=== PATIENT | male | born 1945 | race Caucasian/White ===

== ENCOUNTER 2017-02-27 06:08 | Day surgery (SDC) | payer MEDICARE, BC, OTHER ==
[~2017-02-27] VITALS: Ht 185.4 cm; Wt 94.3 kg
[~2017-02-27 06:08] MED LIST: ADVAIR DISK1 INH; CALCIUM 600 +600 MG PO; CELECOXIB200 MG PO; COLCHICINE0.6 M2 PO; DILT-XR120 MG PO; DUONEB IN; FOLIC ACID1 MG PO; LIVALO2 MG PO; METOPROL TAR25 MG PO; ORENCIA125 MG/ML SC; PRADAXA150 M1 PO; PREDNISONE5 MG PO; PRESERVISION AREDS 2 PO; RHEUMATREX2.5 M1 PO; VENTOLIN HFA IN; WARFARIN1 MG PO
[2017-02-27 10:34] VITALS: BP 108/71
== END 2017-02-27 09:10 | disposition home or self-care (01) ==
LOC: ENDO 06:08
PROVIDERS: ATTEND Surgery
PROC: 3E0H8GC Introduction of Other Therapeutic Substance into Lower GI, Via Natural or Artificial Opening Endoscopic (ICD-10-PCS; principal; 2017-02-27)
DX: Z12.11 Encounter for screening for malignant neoplasm of colon (principal); K56.60 Unspecified intestinal obstruction; Q43.9 Congenital malformation of intestine, unspecified; I10 Essential (primary) hypertension; J45.909 Unspecified asthma, uncomplicated; K64.4 Residual hemorrhoidal skin tags; Z86.010 Personal history of colon polyps

== ENCOUNTER → 2019-02-04 | Outpatient (REF) | payer MEDICARE, BC, OTHER ==
[2019-02-04 13:50] LABS: ALBUMIN 4.2 g/dL (3.2-5.0); ALKALINE PHOSPHATASE 46 u/l (38-126); ANION GAP 14 (6-22 (CALC)); BILIRUBIN, TOTAL 0.6 mg/dL (0.0-1.4); BUN 17 mg/dL (8-23); BUN/CREATININE RATIO 18 (12-20 (CALC)); CARBON DIOXIDE 26 mmol/l (22-30); CHLORIDE 106 mmol/l (95-108); GFR > 60 ML/MIN (>=60 (CALC)); GFR FOR AFR.AMER. > 60 ML/MIN (>=60 (CALC)); POTASSIUM 4.4 mmol/l (3.5-5.1); SGOT/AST 30 u/l (19-48); SODIUM 141 mmol/l (137-146); TOTAL PROTEIN 7.2 g/dL (6.3-8.2)
[2019-02-04 19:11] LABS: HEMATOCRIT 42.6 % (39.0-50.0); HEMOGLOBIN 13.7 g/dl (14.0-18.0); IMMATURE GRANULOCYTES 0.7 % (0.0-5.0); MEAN CELL VOLUME 102.4 fL CALC (80.0-100.0); MEAN CORPUSCULAR HGB 32.9 pG CALC (26.0-32.0); MEAN CORPUSCULAR HGB CONC 32.2 g/L CALC (32.0-36.0); NEUT# 6.41 thou/uL (1.82-7.42); RED BLOOD COUNT 4.16 mill/uL (4.70-6.10); RED CELL DISTRI WIDTH 13.6 % (11.5-15.5)
== END | disposition home or self-care (01) ==
LOC: LAB 11:50
DX: M05.79 Rheumatoid arthritis with rheumatoid factor of multiple sites without organ or systems involvement (principal); Z79.899 Other long term (current) drug therapy; D72.820 Lymphocytosis (symptomatic)

== ENCOUNTER 2022-02-20 18:06 | Emergency (ER) | payer MEDICARE, BC, OTHER ==
[~2022-02-20] VITALS: Ht 185.4 cm; Wt 100.0 kg
[2022-02-20 18:10] VITALS: BP 133/67
== END 2022-02-20 19:16 | disposition home or self-care (01) ==
LOC: ED 18:06
DX: S81.812A Laceration without foreign body, left lower leg, initial encounter (principal); I10 Essential (primary) hypertension; I48.0 Paroxysmal atrial fibrillation; M10.9 Gout, unspecified; M06.9 Rheumatoid arthritis, unspecified; W22.09XA Striking against other stationary object, initial encounter; Y93.53 Activity, golf; Y92.39 Other specified sports and athletic area as the place of occurrence of the external cause; Z79.52 Long term (current) use of systemic steroids; Z79.01 Long term (current) use of anticoagulants

== ENCOUNTER 2022-02-24 06:03 | Inpatient (IN) | payer MEDICARE, BC, OTHER ==
[~2022-02-24] VITALS: Ht 182.9 cm; Wt 91.0 kg
[2022-02-24] VITALS (32 sets, daily range): BP systolic 88–217; BP diastolic 49–196
--- NOTE | 2022-02-24 06:24 | NUR ---
PT TO ROOM VIA WHEELCHAIR MD AT BEDSIDE AND UPDATED ON PT STATUS
[2022-02-24 06:25] LABS: IMMATURE GRANULOCYTES 0.7 % (0.0-5.0); MEAN CELL VOLUME 101.6 fL CALC (80.0-100.0); MEAN CORPUSCULAR HGB 32.3 pG CALC (26.0-32.0); MEAN CORPUSCULAR HGB CONC 31.8 g/dL CAL (32.0-36.0); NEUT# 8.44 thou/uL (1.82-7.42); RED BLOOD COUNT 4.33 mill/uL (4.70-6.10); RED CELL DISTRI WIDTH 14.2 % (11.5-15.5)
[2022-02-24] MEDS ORDERED: CARVEDILOL3.125 MG PO (06:38)
[2022-02-24] MEDS ORDERED: ELIQUIS5 MG PO (06:39)
[2022-02-24] MEDS ORDERED: LIVALO2 M1 PO (06:40)
[2022-02-24] MEDS ORDERED: XELJANZ XR11 MG PO (06:41)
[2022-02-24] MEDS ORDERED: PRESERVISION AREDS 2 PO (06:41)
[2022-02-24] MEDS ORDERED: SINGULAIR10 MG PO (06:42)
[2022-02-24] MEDS ORDERED: DHEA25 M1 PO (06:43)
[2022-02-24 06:44] LABS: ALBUMIN 4.5 g/dL (3.2-5.0); ALKALINE PHOSPHATASE 50 u/l (38-126); ANION GAP 12 (6-22 (CALC)); BILIRUBIN, TOTAL 0.6 mg/dL (0.0-1.4); BUN 17 mg/dL (8-23); BUN/CREATININE RATIO 18 (12-20 (CALC)); CARBON DIOXIDE 25 mmol/l (22-30); CHLORIDE 107 mmol/l (95-108); CREATININE 0.9 mg/dL (0.7-1.3); GFR > 60 ML/MIN (>=60 (CALC)); GFR FOR AFR.AMER. > 60 ML/MIN (>=60 (CALC)); POTASSIUM 4.3 mmol/l (3.5-5.1); SGOT/AST 31 u/l (19-48); SODIUM 140 mmol/l (137-146); TOTAL PROTEIN 8.3 g/dL (6.3-8.2)
[2022-02-24] MEDS ORDERED: IRON325 M1 PO (06:44)
[2022-02-24] MEDS ORDERED: VITAMIN C500 M1 PO (06:44)
[2022-02-24] MEDS ORDERED: B121000 MC1 (06:45)
[2022-02-24] MEDS ORDERED: TAMSULOSIN HCL0.4 MG PO (06:46)
[2022-02-24] MEDS ORDERED: FAMOTIDINE20 M1 PO (06:46)
[2022-02-24 06:52] LABS: D-DIMER 0.81 mg/L (0.19-0.60)
[2022-02-24 06:59] LABS: INTERNATIONAL NORMALIZED RATIO 1.1 RATIO (0.7-1.3); PROTHROMBIN TIME 11.1 SECONDS (9.0-12.5)
--- NOTE | 2022-02-24 07:07 | NUR ---
REPORT GIVEN TO MUSA WALKER AND MUSA MARTINEZ
--- NOTE | 2022-02-24 10:14 | NUR ---
PT TAKEN TO MED/SURG VIA STRETCHER WITH TELE MONITOR IN PLACE. PT IN STABLE CONDITION AT TIME OF ADMISSION.
--- NOTE | 2022-02-24 10:16 | NUR ---
PT ARRIVED TO [facility] ROOM 285 VIA STRECHER ACCOMPAINED BY ER NURSE. PT A/OX3. ASSESSMENT AND VITALS COMPLETED. RESPIRATIONS EVEN AND UNLABORED ON 3L NC, O2 96%. LUNG SOUNDS DIMINISHED. BOWEL SOUNDS ACTIVE, LBM 02/23/22. HEART RHYTHM IRREGULAR, AFIB PER TELE MONITORING.(BOX#4) #20G RAC FLUSHED, SITE PATENT. PEDAL PULSES WEAK. DRESSING NOTED TO LLE, PHOTOS OBTAINED. DRY DRESSING REAPPLIED, REMAINS CDI. PT DENIES OF ANY PAINS OR DISCOMFORTS AT THIS TIME. NKDA NOTED. ALLERGY BAND AND FALL RISK BAND APPLIED. PT ORIENTED TO ROOM AND CALL SYSTEM. ALL SAFTEY PRECAUTIONS ARE IN PLACE WITH CALL LIGHT IN REACH. AIR/CONTACT PRECAUTIONS.
--- NOTE | 2022-02-24 11:37 | NUR ---
UPDATED ON PT STATUS.
--- NOTE | 2022-02-24 12:26 | NUR ---
PT RESTING IN SEMI FOWLERS POSITION. RESPIRATIONS EVEN AND UNLABORED ON 3L NC, O2 97%. O2 DECREASED TO 2L NC, REMAINS AT 97. TELE MONITORING IN PLACE. #20G RAC INFUSING WITH IV ABX.SCHEDULED MEDICATIONS ADMINISTERED. PT DENIES OF ANY ADDITIONAL NEEDS. ALL SAFTEY PRECAUTIONS ARE IN PLACE WITH CALL LIGHT IN REACH
--- NOTE | 2022-02-24 15:53 | NUR ---
TELE MONITORING CALLED STATING HR IN 40'S-50'S. UPON ENTERING ROOM, PT RESTING IN SEMI FOWLERS POSITION. PT STATES HE FEELS WEAK BUT NO CHANGE.TELE MONITORING REMAINS IN PLACE.PT DENIES OF PAINS OR DISCOMFORTS AT THIS TIME. ALL SAFTEY PRECAUTIONS ARE IN PLACE WITH CALL LIGHT IN REACH.
--- NOTE | 2022-02-24 18:01 | NUR ---
ORDERS FROM DR JACINTO TO FRIDA REMDESIVIR AND TRANSFER TO ICU FOR LOW HR. OBTAINED BY BED 8.
--- NOTE | 2022-02-24 18:09 | NUR ---
REPORT GIVEN TO MUSA RICHARDSON
--- NOTE | 2022-02-24 18:30 | NUR ---
PT TRANSFERED TO ICU BED 8 IN STABLE CONDITION WITH ALL PERSONAL BELONGINGS
--- NOTE | 2022-02-24 18:30 | NUR ---
PATIENT IS IN HIS NEW ROOM, STABLE, CALL LIGHT WITHIN REACH, SAFETY MEASURES IN PLACE. WILL CONTINUE TO MONITOR PER HOSPITAL'S POLICY.
--- NOTE | 2022-02-24 20:15 | NUR ---
awake. denies distress. o2 cont per nc. manager statistics shows a fib hr 48. #20 rac saline lock. po fluids taken well. up to bsc for bm then back to bed. shirley well. fall & air/contact precautions cont.
[2022-02-25] VITALS (17 sets, daily range): BP systolic 94–118; BP diastolic 47–90
--- NOTE | 2022-02-25 00:01 | NUR ---
eyes closed. no distress. triage assistant shows a fib pvc hr 46.
--- NOTE | 2022-02-25 02:00 | NUR ---
resting quietly. resps even & unlabored. no distress.
--- NOTE | 2022-02-25 04:00 | NUR ---
cardiac monitor technician shows a fib pvc hr 39.
--- NOTE | 2022-02-25 04:58 | NUR ---
xray here. pcxr obtained.
--- NOTE | 2022-02-25 05:25 | NUR ---
lab here. blood drawn.
[2022-02-25 05:38] LABS: IMMATURE GRANULOCYTES 0.4 % (0.0-5.0); MEAN CELL VOLUME 99.2 fL CALC (80.0-100.0); MEAN CORPUSCULAR HGB 32.1 pG CALC (26.0-32.0); MEAN CORPUSCULAR HGB CONC 32.4 g/dL CAL (32.0-36.0); NEUT# 14.31 thou/uL (1.82-7.42); RED BLOOD COUNT 3.58 mill/uL (4.70-6.10)
[2022-02-25 05:39] LABS: HEMATOCRIT 35.5 % (39.0-50.0); HEMOGLOBIN 11.5 g/dl (14.0-18.0)
[2022-02-25 06:02] LABS: ALKALINE PHOSPHATASE 34 u/l (38-126); ANION GAP 11 (6-22 (CALC)); BILIRUBIN, TOTAL 0.8 mg/dL (0.0-1.4); BUN 24 mg/dL (8-23); BUN/CREATININE RATIO 26 (12-20 (CALC)); CARBON DIOXIDE 21 mmol/l (22-30); CHLORIDE 108 mmol/l (95-108); CREATININE 0.9 mg/dL (0.7-1.3); GFR > 60 ML/MIN (>=60 (CALC)); GFR FOR AFR.AMER. > 60 ML/MIN (>=60 (CALC)); POTASSIUM 4.3 mmol/l (3.5-5.1); SGOT/AST 29 u/l (19-48); SODIUM 135 mmol/l (137-146)
[2022-02-25 06:05] LABS: ALBUMIN 3.2 g/dL (3.2-5.0); TOTAL PROTEIN 6.1 g/dL (6.3-8.2)
--- NOTE | 2022-02-25 07:20 | NUR ---
pt awake in bed; no apparent distress noted; pt offers no complaints other than wanting to be moved out of the unit d/t alarms; no apparent distress noted; assessment completed at this time; pt alert and oriented; denies pain; no n/v noted; resp even and unlabored; lungs clear bilat skin color wnl; o2 per nc at 2L; dry cough noted; hr irreg; strong pulses; no edema noted; afib 40s on the monitor; abd soft with bs present; no bm noted per rfp writer; pt voiding clear jose urine without complication; urinal at bedside; #20 flushed and leaking at insertion site; dressing cdi to left lower leg cdi; plan of care/ am meds explained; call light within reach; will continue to monitor
--- NOTE | 2022-02-25 08:01 | NUR ---
up to recliner per self; eating breakfast; offers no complaints; call light within reach; will continue to monitor
--- NOTE | 2022-02-25 09:05 | NUR ---
Dr Rock present at bedside to assess pt and discuss plan of care
--- NOTE | 2022-02-25 10:06 | NUR ---
pt awake in bed; offers no complaints; iv intact and patent; afib on monitor; ra with Spo2 of 97%; call light within reach; will continue to monitor
--- NOTE | 2022-02-25 12:00 | NUR ---
pt awake sitting in recliner eating lunch; no apparent distress noted; pt offers no complaints; iv intact; afib on monitor; call light within reach; will continue to monitor
--- NOTE | 2022-02-25 14:10 | NUR ---
awake standing at bedside; no apparent distress noted; pt offers no complaints; iv intact; afib on monitor; will continue to monitor
--- NOTE | 2022-02-25 14:50 | NUR ---
up to recliner per self; pt reports coughing up bloody sputum; specimen discarded per pt; specimen cup provided; will continue to monitor
--- NOTE | 2022-02-25 16:03 | NUR ---
awake in bed; no apparent distress noted; CM present at bedside speaking with pt; afib on monitor; iv intact; call light within reach; will continue to monitor
--- NOTE | 2022-02-25 18:06 | NUR ---
awake in recliner; dinner served; iv intact; afib on monitor; brownish sputum obtained; call light within reach
--- NOTE | 2022-02-25 20:00 | NUR ---
awake. talking on cell phone. denies distress. front desk monitor shows a fib pvcs hr 52. #20 lt hand saline lock. po fluids taken well. voids per urinal. fall & air/contact precautions cont.
--- NOTE | 2022-02-25 22:00 | NUR ---
awake. reading. no distress.
--- NOTE | 2022-02-26 00:01 | NUR ---
eyes closed. no distress. manager monitoring shows a fib pvcs hr 64.
[2022-02-26 02:01] VITALS: BP 105/63
--- NOTE | 2022-02-26 04:00 | NUR ---
lab here. blood drawn.
[2022-02-26 04:01] VITALS: BP 109/60
[2022-02-26 05:06] LABS: HEMATOCRIT 34.9 % (39.0-50.0); HEMOGLOBIN 11.4 g/dl (14.0-18.0); IMMATURE GRANULOCYTES 0.6 % (0.0-5.0); MEAN CELL VOLUME 99.7 fL CALC (80.0-100.0); MEAN CORPUSCULAR HGB 32.6 pG CALC (26.0-32.0); MEAN CORPUSCULAR HGB CONC 32.7 g/dL CAL (32.0-36.0); NEUT# 12.85 thou/uL (1.82-7.42); RED BLOOD COUNT 3.5 mill/uL (4.70-6.10); RED CELL DISTRI WIDTH 14.3 % (11.5-15.5)
[2022-02-26 05:23] LABS: ANION GAP 10 (6-22 (CALC)); BUN 23 mg/dL (8-23); BUN/CREATININE RATIO 30 (12-20 (CALC)); CARBON DIOXIDE 20 mmol/l (22-30); CHLORIDE 111 mmol/l (95-108); CREATININE 0.7 mg/dL (0.7-1.3); GFR > 60 ML/MIN (>=60 (CALC)); GFR FOR AFR.AMER. > 60 ML/MIN (>=60 (CALC)); MAGNESIUM 2.1 mg/dL (1.6-2.3); POTASSIUM 4.3 mmol/l (3.5-5.1); SODIUM 137 mmol/l (137-146)
--- NOTE | 2022-02-26 06:00 | NUR ---
carding machine operator shows a fib pvcs.
[2022-02-26 06:01] VITALS: BP 125/69
--- NOTE | 2022-02-26 07:49 | NUR ---
PT A&O X4. PT ASSESSMENT COMPLETE, PT HAS NO C/O PAIN,SOB OR CP. PT STATES "HE WNATS TO GO HOME" PT AMBULATES WITHIN ROOM, GAIT STEADY, PT HAS BSC NEAR. PT HAS BEEN EDUCATED TO CALL IF IN NEED OF ASSISTANCE. PT VSS. PT ON RA, TELE IN PLACE, PT ABLE TO MAKE NEECS KNOWNS AND HAS CALL LIGHT NEAR, PT RECEIVED BREAKFAST TRAY ALL PT NEEDS HAVE BEEN ADDRESSED. WILL CONTINUE TO MONITOR.
[2022-02-26 08:30] VITALS: BP 112/61
--- NOTE | 2022-02-26 09:40 | NUR ---
DR PRESENT IN ROOM, PT TO BE DC'D HOME AND F/U WITH CARDIOLOGY. PT IS READY TO GO HOME AND FEELS STABLE TO LEAVE. PT OOB TO CHAIR NO C/O DISCOMFORT. PT HAS CALL LIGHT NEAR.
[2022-02-26 10:00] VITALS: BP 118/63
[2022-02-26 10:14] VITALS: BP 118/63
[2022-02-26] MEDS ORDERED: ZITHROMAX250 MG PO (11:18)
[2022-02-26] MEDS ORDERED: OMNICEF300 MG PO (11:19)
[2022-02-26] MEDS ORDERED: MEDDOSEPAK PO (11:21)
--- NOTE | 2022-02-26 11:40 | NUR ---
6 MINUTE WALK TEST COMPLETED PER DR MCGILL REQUEST. PT HAD STARTING PULSE OXIMETER READING ON 97%. LOWEST O2 SAT DURING WALK TEST WAS 96%. FINAL RESTING O2 SAT IS 97%. FORM AND DOCUMENTATION COMPLETED.
--- NOTE | 2022-02-26 11:54 | NUR ---
PT DC/D PER PHYS. ORDER. PT COMPLETED THE WALK TEST WITH RT SUCCESSFULLY. PT STATES HE FEELS GOOD AND READY TO GO HOME. PT HAS NO COMPLAINTS. PT CALLED TO PLASTIC PROCESS TECHNICIAN PT HAS TAKEN ALL PERSONAL BELONGONGS AND PT OWN MEDICATIONS WERE SENT WITH HIM WELL. PT D/C PACKET IN HAND, PT WAS TRANSPORTED VIA W/C.
--- NOTE | 2022-02-28 10:19 | NUR ---
Pneumonia post discharge follow up call completed today, 02/28/22. Pt. states he is doing very well. No fever, chills, or unusual SOB since discharge. Pt. saw PCP yesterday for follow up appt. He is taking all medication prescibed at discharge without issue. Pt. voiced no questions or concerns at this time. Pt. was very complimentary of care received while a patient in ICU.
== END 2022-02-26 11:50 | disposition home or self-care (01) | DRG 177 ==
LOC: ED 06:03 → ED-I 08:40 → ED 08:59 → ICU 09:00 → MS2 09:00 → ICU 18:30
PROVIDERS: Family Medicine; ADMIT Internal Medicine; ATTEND Internal Medicine
PROC: XW033E5 Introduction of Remdesivir Anti-infective into Peripheral Vein, Percutaneous Approach, New Technology Group 5 (ICD-10-PCS; principal; 2022-02-24)
DX: U07.1 COVID-19 (principal); J12.82 Pneumonia due to coronavirus disease 2019; R09.02 Hypoxemia; R00.1 Bradycardia, unspecified; T37.5X5A Adverse effect of antiviral drugs, initial encounter; G47.30 Sleep apnea, unspecified; I10 Essential (primary) hypertension; I48.0 Paroxysmal atrial fibrillation; I34.0 Nonrheumatic mitral (valve) insufficiency; M06.9 Rheumatoid arthritis, unspecified; M10.9 Gout, unspecified; J45.909 Unspecified asthma, uncomplicated; Z95.5 Presence of coronary angioplasty implant and graft
CPT/HCPCS: G0378

== ENCOUNTER 2022-09-18 08:31 | Emergency (ER) | payer MEDICARE, BC, OTHER ==
[~2022-09-18] VITALS: Ht 182.9 cm; Wt 87.9 kg
[~2022-09-18 08:31] MED LIST changes: +B121000 MC1; +CARVEDILOL3.125 MG PO; +DHEA25 M1 PO; +ELIQUIS5 MG PO; +FAMOTIDINE20 M1 PO; +IRON325 M1 PO; +LIVALO2 M1 PO; +MEDDOSEPAK PO; +OMNICEF300 MG PO; +SINGULAIR10 MG PO; +TAMSULOSIN HCL0.4 MG PO; +VITAMIN C500 M1 PO; +XELJANZ XR11 MG PO; +ZITHROMAX250 MG PO
[2022-09-18 11:35] VITALS: BP 134/66
== END 2022-09-18 11:43 | disposition home or self-care (01) ==
LOC: ED 08:31
PROC: 2Y41X5Z Packing of Nasal Region using Packing Material (ICD-10-PCS; principal; 2022-09-18)
DX: R04.0 Epistaxis (principal); I48.0 Paroxysmal atrial fibrillation; I10 Essential (primary) hypertension; M10.9 Gout, unspecified; M06.9 Rheumatoid arthritis, unspecified; Z79.01 Long term (current) use of anticoagulants

== ENCOUNTER 2022-10-18 18:06 | Emergency (ER) | payer MEDICARE, BC, OTHER ==
[~2022-10-18] VITALS: Ht 182.9 cm; Wt 88.1 kg
[2022-10-18 18:51] LABS: HEMOGLOBIN 12.2 g/dl (14.0-18.0); IMMATURE GRANULOCYTES 0.6 % (0.0-5.0); MEAN CELL VOLUME 98.1 fL CALC (80.0-100.0); MEAN CORPUSCULAR HGB 32.4 pG CALC (26.0-32.0); NEUT# 3.96 thou/uL (1.82-7.42); RED BLOOD COUNT 3.77 mill/uL (4.70-6.10); RED CELL DISTRI WIDTH 14.1 % (11.5-15.5)
[2022-10-18 19:01] LABS: INTERNATIONAL NORMALIZED RATIO 1.2 RATIO (0.7-1.3)
[2022-10-18 20:05] VITALS: BP 124/74
== END 2022-10-18 20:05 | disposition home or self-care (01) ==
LOC: ED 18:06
PROVIDERS: Nurse Practitioner
DX: R04.0 Epistaxis (principal); I10 Essential (primary) hypertension; M10.9 Gout, unspecified; I48.0 Paroxysmal atrial fibrillation; M06.9 Rheumatoid arthritis, unspecified; Z79.01 Long term (current) use of anticoagulants